=== PATIENT | male | born 1960 | race Asian ===

== ENCOUNTER 2016-11-10 10:15 | Emergency (ER) | payer OTHER ==
[2016-11-10 10:24] VITALS: BP 152/98; PULSE 92; TEMP 98.7; BMI 26.6
--- NOTE | 2016-11-10 11:10 | PDOC ---
History of Present Illness - General Chief Complaint: Respiratory Stated Complaint: COLD, COUGH Time Seen by Provider: 11/10/16 10:40 History Source: Patient Exam Limitations: No Limitations - History of Present Illness Initial Comments: 11/10/16 11:10 CHIEF COMPLAINT: Cough HISTORY OF PRESENT ILLNESS: This is a 55 year old male with a history of HTN who presents complaining of nasal congestion and cough since Wednesday. He has had some chills. He reports that he has bilateral "rib" pain with coughing. He denies chest pain, shortness of breath, or any other symptoms. V/s on arrival are notable for BP 152/98. Patient has been taking OTC decongestants. REVIEW OF SYSTEMS: GENERAL/CONSTITUTIONAL: Chills, no fever. No weakness. No weight change. HEAD, EYES, EARS, NOSE AND THROAT: No change in vision. No ear pain or discharge. No sore throat. CARDIOVASCULAR: No chest pain or palpitations. RESPIRATORY: No cough, wheezing, or shortness of breath. GASTROINTESTINAL: No nausea, vomiting, diarrhea or constipation. GENITOURINARY: No dysuria, frequency, or change in urination. MUSCULOSKELETAL: No neck or back pain. Bilateral rib pain with coughing. SKIN: No rash or easy bruising. NEUROLOGIC: No headache, vertigo, loss of consciousness, or loss of sensation. HEMATOLOGIC/LYMPHATIC: No anemia, easy bleeding, or history of blood clots. ALLERGIC/IMMUNOLOGIC: No hives or skin allergy. No latex allergy. PHYSICAL EXAM: GENERAL: The patient is awake, alert, and fully oriented, in no acute distress. ENT: Pupils equal, round and reactive to light, extraocular movements intact, sclera anicteric, conjunctiva clear. Neck supple. LUNGS: Clear to auscultation bilaterally. Normal excursion. No respiratory distress or use of accessory muscles. CV: RRR, S1/S2, no MRG. Cap refill < 2 sec. ABDOMEN: Soft, non-distended, non-tender. EXTREMITIES: Normal range of motion, no edema. NEUROLOGICAL: Normal speech, normal gait. CN II-XII grossly intact. PSYCH: Normal mood, normal affect. SKIN: Warm, dry, normal turgor, no rashes or lesions noted. Past History - Past Medical History Allergies/Adverse Reactions: Allergies Allergy/AdvReac Type Severity Reaction Status Date / Time No Known Drug Allergies Allergy Verified 11/10/16 10:24 SEASONAL Allergy ITCHY EYES Uncoded 11/10/16 10:24 Home Medications: Ambulatory Orders Ascorbate Calcium [Vitamin C] 500 mg PO DAILY 08/07/14 Biotin 5 mg PO DAILY 08/07/14 Ginkgo Biloba 40 mg PO DAILY 08/07/14 Glucosa Williamson 2Kcl/Chondroitin Williamson [Glucosamine & Chondroitin Cap] 1 each PO DAILY 08/07/14 Milk Thistle 150 mg PO DAILY 08/07/14 Multivitamins [Multivit ([facility] Formulary)] 1 tab PO DAILY 08/07/14 Alive 1 tab PO DAILY 02/18/15 Ibuprofen [Motrin -] 400 mg PO QID 02/18/15 Hydrocodone/Acetaminophen [Vicodin 5-300 mg Tablet] 1 - 2 tab PO TID PRN #40 tablet 02/26/15 Promethazine/Phenyleph/Codeine [Promethazine Vc-Codeine Syrup] 5 ml PO Q6H PRN # 120 ml MDD 20 ml 11/10/16 Anemia: No Asthma: No Cancer: No Cardiac Disorders: No CVA: No COPD: No CHF: No Dementia: No Diabetes: No GI Disorders: No Disorders: No HTN: Yes Hypercholesterolemia: No Liver Disease: No Seizures: No Thyroid Disease: No Other medical history: R HAND - Surgical History Appendectomy: Yes - Psycho/Social/Smoking Cessation Hx Anxiety: No Suicidal Ideation: No Smoking Status: No Smoking History: Never smoked Have you smoked in the past 12 months: No Number of Cigarettes Smoked Daily: 0 Hx Alcohol Use: No Drug/Substance Use Hx: No *Physical Exam - Vital Signs Last Vital Signs Temp Pulse Resp BP Pulse Ox 98.7 F 92 H 18 152/98 97 11/10/16 10:22 11/10/16 10:22 11/10/16 10:22 11/10/16 10:22 11/10/16 10:22 Medical Decision Making - Medical Decision Making 11/10/16 11:47 A/P: 55 year old male with URI symptoms. -Rapid flu neg -CXR: No acute process *DC/Admit/Observation/Transfer Diagnosis at time of Disposition: Cough - Discharge Dispostion Admit: No - Prescriptions Prescriptions: Promethazine/Phenyleph/Codeine [Promethazine Vc-Codeine Syrup] 5 ml PO Q6H PRN # 120 ml MDD 20 ml PRN Reason: Cough - Referrals Referrals: Leonora Allison MD [Primary Care Provider] - 2 Days - Patient Instructions Printed Discharge Instructions: DI for Viral Upper Respiratory Infection -- Adult Additional Instructions: You were seen today for cough. Your chest xray is normal and your flu swab is negative. Take cough syrup as prescribed (it contains codeine and may cause drowsiness). Follow up with your primary care doctor later this week. Return here for difficulty breathing, chest pain, or any other concerning symptoms. - Post Discharge Activity Work/School Note: Back to Work
== END 2016-11-10 12:19 | disposition home or self-care (01) ==
LOC: JERFT 10:15
DX: R05 Cough (principal); I10 Essential (primary) hypertension
CPT/HCPCS: 71020-TC; 87804; 99281-25

== ENCOUNTER 2018-10-10 18:41 | Emergency (ER) | payer OTHER ==
[2018-10-10 19:03] VITALS: BP 136/89; PULSE 91; TEMP 97.9; BMI 26.6
--- NOTE | 2018-10-10 19:03 | PDOC ---
Rapid Medical Evaluation Chief Complaint: Cold Symptoms Time Seen by Provider: 10/10/18 19:00 Medical Evaluation: Allergies Allergy/AdvReac Type Severity Reaction Status Date / Time No Known Drug Allergies Allergy Verified 11/10/16 10:24 SEASONAL Allergy ITCHY EYES Uncoded 11/10/16 10:24 10/10/18 19:01 I have performed a brief in-person evaluation of this patient. The patient presents with chief complaint of productive coughing and nasal congestion. Took mucinex D with relief of nasal congestion but cough persist. Denies fever or chills Pertinent physical exam findings NAD HEENT: no sinus tenderness lungs clear bilaterally I have ordered the following chest xray The patient will proceed to the Ed for further evaluation Discharge Disposition - Diagnosis Cough - Referrals Referrals: Leonora Allison MD [Primary Care Provider] - - Patient Instructions - Post Discharge Activity
--- NOTE | 2018-10-10 20:27 | PDOC ---
History of Present Illness - General Chief Complaint: Cold Symptoms Stated Complaint: COLD SYMPTOMS Time Seen by Provider: 10/10/18 19:00 - History of Present Illness Initial Comments: 10/10/18 20:24 57-year-old male with a past medical history significant for hypertension presents for evaluation of cough and subjective fever and chills 3 days he's been taking Mucinex D for his symptoms which is helped him a little bit. He complains of nasal congestion and subjective fever and cough. Past History - Past Medical History Allergies/Adverse Reactions: Allergies Allergy/AdvReac Type Severity Reaction Status Date / Time No Known Drug Allergies Allergy Verified 11/10/16 10:24 SEASONAL Allergy ITCHY EYES Uncoded 11/10/16 10:24 Home Medications: Ambulatory Orders Ascorbate Calcium [Vitamin C] 500 mg PO DAILY 08/07/14 Biotin 5 mg PO DAILY 08/07/14 Ginkgo Biloba 40 mg PO DAILY 08/07/14 Glucosa Williamson 2Kcl/Chondroitin Williamson [Glucosamine & Chondroitin Cap] 1 each PO DAILY 08/07/14 Milk Thistle 150 mg PO DAILY 08/07/14 Multivitamins [Multivit ([facility] Formulary)] 1 tab PO DAILY 08/07/14 Alive 1 tab PO DAILY 02/18/15 Ibuprofen [Motrin -] 400 mg PO QID 02/18/15 Hydrocodone/Acetaminophen [Vicodin 5-300 mg Tablet] 1 - 2 tab PO TID PRN #40 tablet 02/26/15 Promethazine/Phenyleph/Codeine [Promethazine Vc-Codeine Syrup] 5 ml PO Q6H PRN # 120 ml MDD 20 ml 11/10/16 Budesonide [Rhinocort Allergy] 1 spray NS ONCE #1 spray.pump 10/10/18 Guaifenesin Dm [Mucinex Dm -] 1 tab PO BID #60 tab.er.12h 10/10/18 Anemia: No Asthma: No Cancer: No Cardiac Disorders: No CVA: No COPD: No CHF: No Dementia: No Diabetes: No GI Disorders: No Disorders: No HTN: Yes Hypercholesterolemia: No Liver Disease: No Seizures: No Thyroid Disease: No - Surgical History Appendectomy: Yes - Immunization History Immunization Up to Date: Yes - Suicide/Smoking/Psychosocial Hx Smoking Status: No Smoking History: Never smoked Have you smoked in the past 12 months: No Number of Cigarettes Smoked Daily: 0 Information on smoking cessation initiated: No Hx Alcohol Use: No Drug/Substance Use Hx: No Review of Systems - Review of Systems Constitutional: Yes: Chills, Fever Respiratory: Yes: Cough *Physical Exam - Vital Signs Last Vital Signs Temp Pulse Resp BP Pulse Ox 97.9 F 91 H 16 136/89 97 10/10/18 19:00 10/10/18 19:00 10/10/18 19:00 10/10/18 19:00 10/10/18 19:00 - Physical Exam Comments: 10/10/18 20:25 HEAD: NC/AT EYES: Conjuntiva clear Ears: Canals and TM's normal NOSE: No d/c THROAT: Moist mucous membrances, oral pharanx clear, uvula midline NECK: Supple without adenopathy CARDIAC: S1 S2 LUNGS: CTA Full and Equal breath sounds ABDOMEN: Soft NT ND MS: Full ROM in all joints without edema NEUROLOGIC: No gross sensory or motor deficits, NVID SKIN: Normal color and temperature no lesions or rashes Moderate Sedation - Procedure Monitoring Vital Signs: Procedure Monitoring Vital Signs Temperature 97.9 F 10/10/18 19:00 Pulse Rate 91 H 10/10/18 19:00 Respiratory Rate 16 10/10/18 19:00 Blood Pressure 136/89 10/10/18 19:00 O2 Sat by Pulse Oximetry (%) 97 10/10/18 19:00 Medical Decision Making - Medical Decision Making 10/10/18 20:25 I've advised patient to discontinue the Mucinex D with Sudafed and I have switched it to Mucinex DM with dextromethorphan. He is also requesting a nasal spray which I will prescribe for him. This is a viral upper respiratory infection I will have him follow-up with his PCP with instructions to return to the emergency room should symptoms worsen. I've also instructed him on the use of Tylenol and Motrin. *DC/Admit/Observation/Transfer Diagnosis at time of Disposition: Cough, Viral respiratory illness - Discharge Dispostion Disposition: HOME Condition at time of disposition: Stable Decision to Admit order: No - Referrals Referrals: Leonora Allison MD [Primary Care Provider] - - Patient Instructions Printed Discharge Instructions: DI for Viral Upper Respiratory Infection -- Adult Additional Instructions: Return to the emergency room for worsening symptoms. Please discontinue the Mucinex D and switch to the Mucinex DM which I have sent here pharmacy. The nasal spray has also been sent here pharmacy has requested. Please use nasal spray as directed. Return to the emergency room for worsening symptoms and follow-up with your primary care physician in one to 2 days for further evaluation and treatment options. - Post Discharge Activity Forms/Work/School Notes: Back to Work
== END 2018-10-10 20:30 | disposition home or self-care (01) ==
LOC: JERFT 18:41
DX: J06.9 Acute upper respiratory infection, unspecified (principal); B97.89 Other viral agents as the cause of diseases classified elsewhere
CPT/HCPCS: 71046-TC-FY; 99281-25

== ENCOUNTER 2019-02-19 15:12 | Emergency (ER) | payer OTHER | END 2019-02-19 16:18 | disposition home or self-care (01) | LOC: JER 15:12 → JERFT 16:18 ==

== ENCOUNTER 2019-08-16 06:38 | Day surgery (SDC) | payer OTHER ==
--- NOTE | 2019-08-15 10:08 | HP ---
Satellite [facility] - Chief Complaint Chief Complaint: left middle finger pain - Past Medical History Allergies/Adverse Reactions: Allergies Allergy/AdvReac Type Severity Reaction Status Date / Time No Known Drug Allergies Allergy Verified 02/19/19 15:21 SEASONAL Allergy ITCHY EYES Uncoded 02/19/19 15:21 - Current Medications Current Medications: Home Medications Medication Instructions Recorded Ascorbate Calcium [Vitamin C] 500 mg PO DAILY 08/07/14 Biotin 5 mg PO DAILY 08/07/14 Ginkgo Biloba 40 mg PO DAILY 08/07/14 Glucosa Williamson 2Kcl/Chondroitin Williamson 1 each PO DAILY 08/07/14 [Glucosamine & Chondroitin Cap] Milk Thistle 150 mg PO DAILY 08/07/14 Multivitamins [Multivit ([facility] 1 tab PO DAILY 08/07/14 Formulary)] Alive 1 tab PO DAILY 02/18/15 Ibuprofen [Motrin -] 400 mg PO QID 02/18/15 Hydrocodone/Acetaminophen [Vicodin 1 - 2 tab PO TID PRN #40 tablet 02/26/15 5-300 mg Tablet] Promethazine/Phenyleph/Codeine 5 ml PO Q6H PRN #120 ml MDD 20 ml 11/10/16 [Promethazine Vc-Codeine Syrup] Budesonide [Rhinocort Allergy] 1 spray NS ONCE #1 spray.pump 10/10/18 Guaifenesin Dm [Mucinex Dm -] 1 tab PO BID #60 tab.er.12h 10/10/18 Methocarbamol [Robaxin -] 500 mg PO BID PRN #14 tablet 02/19/19 Methylprednisolone [Medrol Dose 4 mg PO ASDIR #21 tablet 02/19/19 Enrrique] Satellite Physical Exam - Physical Examination General Appearance: Well Nourished, Well Developed, Alert & Oriented x3 ENT: Clear Lung: Normal air movement Extremities: Other (left middle finger- +ttp a1 lilly, + locking, nvi) Satellite Impression/Plan - Impression/Plan Impression: left middle trigger finger Operative Procedure: left middle trigger finger release Date to be Performed: 08/16/19
[2019-08-15 10:19] VITALS: BMI 27.0
[2019-08-16] MEDS ORDERED: LIDOCAINE HCL 1%, 10 MG/ML (20ML VIAL) ONE (07:09)
[2019-08-16 07:15] LABS: URINE APPEARANCE CLEAR; URINE BILIRUBIN NEGATIVE (NEGATIVE); URINE COLOR DK YELLOW; URINE GLUCOSE (UA) NEGATIVE (NEGATIVE); URINE KETONE TRACE (NEGATIVE); URINE LEUK ESTERASE NEGATIVE (NEGATIVE); URINE NITRITE NEGATIVE (NEGATIVE); URINE PROTEIN NEGATIVE (NEGATIVE)
[2019-08-16 07:23] LABS: PROTHROMBIN TIME (PATIENT) 11.8 SEC (9.7-13.0)
[2019-08-16 07:25] LABS: ACTIVATED PTT 36.9 SECONDS (25.2-36.5)
[2019-08-16] MEDS ORDERED: PROPOFOL 20 ML ONE (07:29)
[2019-08-16] MEDS ORDERED: MIDAZOLAM HCL 2 MG/2 ML SINGLE DOSE VIAL ONE (07:30)
[2019-08-16] MEDS ORDERED: ceFAZolin 2 GRAM PREMIX BAG IVPB ONE (08:17)
[2019-08-16] MEDS ORDERED: ceFAZolin SODIUM 1 GM VIAL ONE (08:19)
[2019-08-16] MEDS ORDERED: LIDOCAINE HCL 1%, 10 MG/ML (20ML VIAL) NR ONE ×2 (08:30)
[2019-08-16] MEDS ORDERED: BUPIVACAINE HCL/PF 0.5% (5 MG/ML) 30 ML VIAL IJ ONE ×2 (08:30)
[2019-08-16] MEDS ORDERED: KETOROLAC TROMETHAMINE 30 MG/1 ML VIAL ONE (08:47)
--- NOTE | 2019-08-16 08:57 | OP ---
Operative Note - Note: Operative Date: 08/16/19 Pre-Operative Diagnosis: left middle trigger finger Operation: left middle finger trigger release, tendon sheath excision Post-Operative Diagnosis: Same as Pre-op Surgeon: Mejia Quijano Anesthesiologist/COVER INSPECTOR: Oanh Menard Anesthesia: Local, MAC Specimens Removed: tendon sheath Estimated Blood Loss (mls): 0 Drains, Volume Out (mls): 0 Blood Volume Replaced (mls): 0 Fluid Volume Replaced (mls): 500 Operative Report Dictated: Yes
--- NOTE | 2019-08-16 09:32 | SPEC ---
DATE OF OPERATION: 08/16/2019 PREOPERATIVE DIAGNOSIS: Left middle finger trigger finger. POSTOPERATIVE DIAGNOSIS: Left middle finger trigger finger. OPERATION: Left middle finger trigger release and tendon sheath excision. SURGEON: Augusta El M.D. HOT STONE SETTER: None. ANESTHESIOLOGIST: Oanh Menard CRNA ANESTHESIA: MAC anesthesia with local injection of 10 mL of 0.5% Marcaine and 1% lidocaine mix. DRAINS: None. COMPLICATIONS: None. SPECIMEN: Tendon sheath, left middle finger. BLOOD LOSS: None. BLOOD GIVEN: None. FLUID REPLACEMENT: Plasmalyte 500 mL. INDICATIONS: Patient is a 58-year-old male with the preoperative diagnosis of a painful recurrent left middle finger trigger finger. After understanding the potential risks, complications, alternatives and benefits of the surgery versus non-surgical treatment, the patient elected to undergo this procedure. DESCRIPTION OF PROCEDURE: The patient was brought to the operating room, IV was placed, IV sedation was given. Intravenous Ancef 2 g was given. A tourniquet was applied to the left upper arm, and the left upper extremity was prepped and draped in sterile fashion. The entire case was done under 3.8 loupe magnification. A marking pen was utilized to hope out a longitudinal incision in an already existing skin crease at the base of the left middle finger. Then 10 mL of 0.5% Marcaine mixed with 1% lidocaine was injected in and around the incision. The left upper extremity was elevated, exsanguinated with an Esmarch bandage and the tourniquet inflated to 250 mmHg. A No. 15 scalpel blade was utilized to cut down through the skin. Subcutaneous hemostasis was achieved with the bipolar cautery. Additional dissection was done with Littler scissors until I was able to directly visualize the A1 lilly sheath in its entirety. Self-retaining retractors were placed into the wound. A Breaks elevator was used to free up the tissue on the radial side, the ulnar side distally and proximally under better visualization of A1 lilly sheath. Next, using a fresh No. 15 scalpel blade, I excised the central one-third of the A1 lilly sheath and passed it off the field as specimen, tendon sheath, middle finger. I then completed the release, both distally and proximally, and brought the FDS and FDP tendons out through the wound with a Ragnell retractor. There were no abnormal points of compression. I was able to move the middle finger without the tendons bunching up at all. The area was then copiously irrigated and washed out. I then checked one more time to make sure there were no abnormal points of compression. None were seen and therefore closure was begun. One stitch using 4-0 Vicryl was used in the deep dermal layer. Skin was reapproximated with 4-0 nylon sutures in a horizontal mattress fashion. The area was then washed and dried, covered with Xeroform gauze, sterile 4 x 4s, fluffs between the fingers, Webril and Coban. The tourniquet was taken down after a total tourniquet time of 17 minutes. There were no complications during the case. The patient tolerated the procedure well and was brought to the Ambulatory Recovery Room in stable condition. AUGUSTA EL M.D. [id number]
[2019-08-16] MEDS ORDERED: oxyCODONE HCL 5 MG TABLET PO PRN (12:31)
[2019-08-16] MEDS ORDERED: ONDANSETRON 4 MG/2 ML VIAL IVPUSH PRN (12:31)
[2019-08-16] MEDS ORDERED: LACTATED RINGERS SOLUTION 1,000 ML IV SCH (12:45)
[2019-08-16 15:37] VITALS: BP 136/78; PULSE 70; TEMP 97.8
--- NOTE | 2019-08-17 11:45 | PATH ---
Surgical Pathology Report Patient Name: JI ACEVEDO Med. Rec. #: [id number] /Age/Gender: 1960 (Age: 58) / M Account: [id number] Location: [facility] SURGICAL Taken: 08/16/2019 Received: 08/16/2019 Reported: 08/17/2019 Physicians: Mejia Quijano M.D. Specimen(s) Received EXCISION LEFT MIDDLE FINGER Clinical History Trigger finger (left middle finger) Final Diagnosis MIDDLE FINGER, TENDON SHEATH, LEFT, TRIGGER FINGER RELEASE: BENIGN DENSE FIBROCONNECTIVE AND FIBROADIPOSE TISSUE. Electronically Signed Nicole Chandler M.D. Gross Description Received in formalin labeled "tendon sheath excision left middle finger," is a 0.5 cm in greatest dimension espinoza soft tissue fragment. The specimen is submitted in toto in one cassette. DL/08/16/2019 saudi08/16/2019
== END 2019-08-16 11:00 | disposition home or self-care (01) ==
LOC: JASU-SURG 06:38
PROVIDERS: ATTEND Orthopaedic Surgery
PROC: 0LN80ZZ Release Left Hand Tendon, Open Approach (ICD-10-PCS; principal; 2019-08-16 08:00)
DX: M65.332 Trigger finger, left middle finger (principal)
CPT/HCPCS: 36415; 81003; 85610; 85730

== ENCOUNTER 2021-02-10 10:20 | Emergency (ER) | payer OTHER ==
[2021-02-10 10:34] VITALS: BMI 26.6
[2021-02-10 12:50] LABS: BASO % 0.8 % (0-2.0); EOS % 5.8 % (0-4.5); HEMOGLOBIN 15.7 GM/dL (11.7-16.9); LYMPH % 10.7 % (8-40); MCH 30.3 pg (25.7-33.7); MCHC 34.2 g/dl (32.0-35.9); MEAN CELL VOLUME 88.7 fl (80-96); MEAN PLT VOLUME 7.1 fl (7.5-11.1); MONO % 4.7 % (3.8-10.2); PLATELET COUNT 458 10^3/uL (134-434); RBC 5.18 M/mm3 (4.00-5.60); RDW 14.9 % (11.9-15.9); WHITE BLOOD COUNT 11.1 K/mm3 (4.0-10.0)
[2021-02-10 13:12] LABS: ALBUMIN 4.4 g/dl (3.4-5.0); BLOOD UREA NITROGEN 22.6 mg/dL (7-18)
[2021-02-10 13:15] LABS: CREATININE 0.9 mg/dL (0.55-1.3)
[2021-02-10 13:17] LABS: BILIRUBIN,TOTAL 0.7 mg/dL (0.2-1); TOT PROT 6.8 g/dl (6.4-8.2)
[2021-02-10 13:52] VITALS: BP 166/92; PULSE 65; TEMP 98.4
== END 2021-02-10 13:50 | disposition home or self-care (01) ==
LOC: JER 10:20
DX: G51.0 Bell's palsy (principal)
CPT/HCPCS: 36415; 70450-TC; 80053; 85025; 86618; 93005; 93010; 99285-25

== ENCOUNTER 2021-02-13 18:45 | Emergency (ER) | payer OTHER ==
[2021-02-13 19:05] VITALS: BP 172/96; PULSE 67; TEMP 98.1; BMI 26.6
[2021-02-13] MEDS ORDERED: ACETAMINOPHEN 1000 MG/100 ML VIAL (NON FORMULARY) IVPB ONE (20:36)
[2021-02-13] MEDS ORDERED: ACETAMINOPHEN INJECTION 100 ML IVPB ONE (21:22)
[2021-02-13 22:26] LABS: BASO % 0.3 % (0-2.0); EOS % 3.6 % (0-4.5); HEMATOCRIT 47.3 % (35.4-49); HEMOGLOBIN 16.1 GM/dL (11.7-16.9); LYMPH % 6.9 % (8-40); MCH 30.3 pg (25.7-33.7); MCHC 34.1 g/dl (32.0-35.9); MEAN CELL VOLUME 88.9 fl (80-96); MEAN PLT VOLUME 7.2 fl (7.5-11.1); MONO % 6.7 % (3.8-10.2); NEUT % 82.5 % (42.8-82.8); PLATELET COUNT 504 10^3/uL (134-434); RBC 5.32 M/mm3 (4.00-5.60); RDW 14.7 % (11.9-15.9); WHITE BLOOD COUNT 17.9 K/mm3 (4.0-10.0)
[2021-02-13 22:43] LABS: CHLORIDE 104 mmol/L (98-107); SODIUM 139 mmol/L (136-145)
[2021-02-13 22:46] LABS: CALCIUM 8.5 mg/dL (8.5-10.1)
[2021-02-13 22:47] LABS: ANION GAP 7 MMOL/L (8-16); BLOOD UREA NITROGEN 19.9 mg/dL (7-18); CO2 28 mmol/L (21-32); GLUCOSE,RANDOM 94 mg/dL (74-106)
[2021-02-13 22:50] LABS: SGOT/AST 18 U/L (15-37); SGPT/ALT 35 U/L (13-61)
[2021-02-13 22:51] LABS: BILIRUBIN,TOTAL 0.9 mg/dL (0.2-1); TOT PROT 6.6 g/dl (6.4-8.2)
[2021-02-13 22:52] LABS: ALK PHOS 90 U/L (45-117)
[2021-02-13] MEDS ORDERED: KETOROLAC TROMETHAMINE 30 MG/1 ML VIAL IVPUSH ONE (23:12)
[2021-02-13] MEDS ORDERED: KETOROLAC TROMETHAMINE 30 MG/1 ML VIAL ONE (23:26)
== END 2021-02-14 00:27 ==
LOC: JER 18:45
PROC: 3E0333Z Introduction of Anti-inflammatory into Peripheral Vein, Percutaneous Approach (ICD-10-PCS; principal; 2021-02-13)
PROC: 3E033GC Introduction of Other Therapeutic Substance into Peripheral Vein, Percutaneous Approach (ICD-10-PCS; 2021-02-13)
DX: G51.0 Bell's palsy (principal); R07.9 Chest pain, unspecified
CPT/HCPCS: 36415; 71046-TC-FY; 80053; 82550; 84484; 85025; 93005; 93010; 99284-25; J0131

== ENCOUNTER 2021-08-12 14:10 | Emergency (ER) | payer OTHER ==
[2021-08-12 14:20] VITALS: BP 175/97; PULSE 68; TEMP 97.7; BMI 27.4
== END 2021-08-12 15:35 | disposition home or self-care (01) ==
LOC: JERFT 14:10
DX: S83.412A Sprain of medial collateral ligament of left knee, initial encounter (principal); W00.0XXA Fall on same level due to ice and snow, initial encounter
CPT/HCPCS: 73562-TC-LT-FY; 73610-TC-LT-FY; 99284-25

== ENCOUNTER 2022-09-09 22:59 | Emergency (ER) | payer OTHER ==
[2022-09-09 23:05] VITALS: BP 146/100; PULSE 82; RESP 17; TEMP 97.6; BMI 27.4
== END 2022-09-10 02:41 | disposition home or self-care (01) ==
LOC: JER 22:59
DX: U07.1 COVID-19 (principal)
CPT/HCPCS: 0241U-QW; 99283-25

== ENCOUNTER 2023-05-31 14:40 | Emergency (ER) | payer OTHER ==
[2023-05-31 15:47] VITALS: BP 117/80; PULSE 66; RESP 19; TEMP 98.8; BMI 27.4
[2023-05-31] MEDS ORDERED: METOCLOPRAMIDE HCL INJECTION 10 MG/2 ML VIAL IVPB ONE (20:00)
[2023-05-31] MEDS ORDERED: ACETAMINOPHEN 1000 MG/100 ML BAG IVPB ONE (20:00)
[2023-05-31] MEDS ORDERED: SODIUM CHLORIDE 0.9% 500 ML INFUS.BAG IV ONE ×2 (20:00→22:08)
[2023-05-31] MEDS ORDERED: METOCLOPRAMIDE HCL INJECTION 10 MG/2 ML VIAL ONE (20:20)
[2023-05-31] MEDS ORDERED: ACETAMINOPHEN INJECTION 100 ML IVPB ONE (20:20)
[2023-05-31 20:35] LABS: BASO % 0.7 % (0-2.0); EOS % 2.9 % (0-4.5); HEMATOCRIT 58.7 % (35.4-49); HEMOGLOBIN 19.5 GM/dL (11.7-16.9); LYMPH % 7.4 % (8-40); MCH 28.1 pg (25.7-33.7); MCHC 33.2 g/dl (32.0-35.9); MEAN CELL VOLUME 84.7 fl (80-96); MEAN PLT VOLUME 6.9 fl (7.5-11.1); MONO % 7.3 % (3.8-10.2); NEUT % 81.7 % (42.8-82.8); PLATELET COUNT 522 10^3/uL (134-434); RBC 6.93 M/mm3 (4.00-5.60); RDW 14.2 % (11.9-15.9); WHITE BLOOD COUNT 14.6 K/mm3 (4.0-10.0)
[2023-05-31 21:08] LABS: POTASSIUM 4.5 mmol/L (3.5-5.1)
[2023-05-31 21:10] LABS: CALCIUM 9.6 mg/dL (8.5-10.1)
[2023-05-31 21:11] LABS: ALBUMIN 4.3 g/dl (3.4-5.0); MAGNESIUM 2.5 mg/dL (1.8-2.4)
[2023-05-31 21:15] LABS: BILIRUBIN,TOTAL 0.8 mg/dL (0.2-1); TOT PROT 7.2 g/dl (6.4-8.2)
[2023-05-31] MEDS ORDERED: KETOROLAC TROMETHAMINE 15 MG/ML VIAL IVPUSH ONE (22:56)
[2023-05-31] MEDS ORDERED: KETOROLAC TROMETHAMINE 15 MG/ML VIAL ONE (22:59)
[2023-06-01] MEDS ORDERED: DEXAMETHASONE SOD PHOSPHATE 10 MG/1 ML VIAL IVPUSH ONE (00:19)
[2023-06-01] MEDS ORDERED: DEXAMETHASONE SOD PHOSPHATE 10 MG/1 ML VIAL ONE (00:26)
== END 2023-06-01 00:28 | disposition home or self-care (01) ==
LOC: JER 14:40
PROC: 3E033NZ Introduction of Analgesics, Hypnotics, Sedatives into Peripheral Vein, Percutaneous Approach (ICD-10-PCS; principal; 2023-05-31)
PROC: 3E0333Z Introduction of Anti-inflammatory into Peripheral Vein, Percutaneous Approach (ICD-10-PCS; 2023-05-31)
PROC: 3E033GC Introduction of Other Therapeutic Substance into Peripheral Vein, Percutaneous Approach (ICD-10-PCS; 2023-05-31)
PROC: 3E033GC Introduction of Other Therapeutic Substance into Peripheral Vein, Percutaneous Approach (ICD-10-PCS; 2023-06-01)
DX: R51.9 Headache, unspecified (principal); H53.71 Glare sensitivity; R11.0 Nausea
CPT/HCPCS: 36415; 70450-TC; 80053; 83735; 84484; 85025; 93005; 93010; 99285-25; J1100